=== PATIENT | female | born 1980 | race Hispanic/Latino ===

== ENCOUNTER 2017-05-30 15:40 | Emergency (ER) | payer SELFPAY ==
[2017-05-30] MEDS ORDERED: Ketorolac Tromethamine 30 MG/ML VIAL ONE (15:58)
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
[2017-05-30 16:44] LABS: Bilirubin Negative (Negative); Blood, Urine Negative (Negative); Glucose, Urine (Dipstick) Negative (Negative); Ketone, Urine Negative (Negative); Nitrite Negative (Negative); Protein, Urine (Dipstick) Negative (Neg-Trace); Urobilinogen 0.2 mg/dL (0.2-1.0)
[2017-05-30 16:50] LABS: Amphetamine Not Detected (NotDetected); Methadone Not Detected (NotDetected); Methamphetamine Not Detected (NotDetected)
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
[2017-05-30] MEDS ORDERED: Morphine 4 MG/ML VIAL ONE (17:11)
[2017-05-30 17:18] LABS: #Lymphocytes 0.9 thou/uL (1.20-3.40); #Monocytes 0.3 thou/uL (0.11-0.59); #Neutrophils 2.5 thou/uL (1.40-6.50); %Basophils 0.6 % (0.0-1.0); %Eosinophils 0.3 % (0.0-10.0); %Lymphocytes 24.5 % (21.0-51.0); %Monocytes 7.7 % (0.0-10.0); Hematocrit 38.2 % (36.0-47.0); Mean Platelet Volume 7.9 fL (7.4-10.4); Red Blood Cell (RBC) Count 4.43 mill/uL (4.20-5.40); White Blood Cell (WBC) Count 3.8 thou/uL (4.8-10.8)
[2017-05-30 17:41] LABS: ALT (SGPT) 13 U/L (8-55); AST (SGOT) 27 U/L (5-34); Alkaline Phosphatase 84 U/L (40-150); Anion Gap 18 mmol/L (10-20); BUN (Urea Nitrogen) 6 mg/dL (7.0-18.7); Bilirubin, Total 0.4 mg/dL (0.2-1.2); Calc. Creatinine Clearance 0 mL/min (70-130); Calcium 9.2 mg/dL (7.8-10.44); Carbon Dioxide 17 mmol/L (22-29); Chloride 105 mmol/L (98-107); Estimated GFR-MDRD Greater than 90; Globulin 4.1 g/dL (2.4-3.5); Protein, Total 8.5 g/dL (6.0-8.3)
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
== END 2017-05-30 18:52 | disposition home or self-care (01) ==
LOC: ERS 15:40
DX: S06.0X9A Concussion with loss of consciousness of unspecified duration, initial encounter (principal); S00.03XA Contusion of scalp, initial encounter; I10 Essential (primary) hypertension; M62.838 Other muscle spasm; V43.52XA Car driver injured in collision with other type car in traffic accident, initial encounter
CPT/HCPCS: 70450; 71010; 72050; 80053; 80306; 81003; 81025; 85025; 93005; 96374; J1885; J2270

== ENCOUNTER 2021-02-08 13:50 | Inpatient (IN) | payer SELFPAY ==
[2021-02-08 16:04] LABS: #Basophils 0.1 thou/uL (0.0-0.2); #Eosinphils 0.1 thou/uL (0.0-0.7); #Lymphocytes 2.3 thou/uL (1.20-3.40); #Monocytes 0.6 thou/uL (0.11-0.59); #Neutrophils 4.6 thou/uL (1.40-6.50); %Basophils 1.2 % (0.0-1.0); %Eosinophils 1.1 % (0.0-10.0); %Lymphocytes 29.9 % (21.0-51.0); %Monocytes 7.6 % (0.0-10.0); %Neutrophils 60.2 % (42.0-75.0); Hemoglobin 8.3 g/dL (12.0-16.0); Mean Corpuscular HGB CONC 31.7 g/dL (32.0-36.0); Mean Corpuscular Hemoglobin 24.9 pg (27.0-31.0); Mean Corpuscular Volume 78.8 fL (78.0-98.0); Mean Platelet Volume 8.7 fL (7.4-10.4); Platelet Count 250 thou/uL (130-400); RBC Distribution Width 17.4 % (11.5-14.5); Red Blood Cell (RBC) Count 3.32 mill/uL (4.20-5.40); White Blood Cell (WBC) Count 7.7 thou/uL (4.8-10.8)
[2021-02-08 16:26] LABS: ALT (SGPT) 12 U/L (8-55); AST (SGOT) 39 U/L (5-34); Albumin 3.2 g/dL (3.5-5.0); Alkaline Phosphatase 138 U/L (40-110); Anion Gap 12 mmol/L (10-20); BUN (Urea Nitrogen) 7 mg/dL (7.0-18.7); Bilirubin, Total 1.6 mg/dL (0.2-1.2); Calc. Creatinine Clearance 0 mL/min (70-130); Calcium 9.1 mg/dL (7.8-10.44); Carbon Dioxide 23 mmol/L (22-29); Chloride 105 mmol/L (98-107); Globulin 6.5 g/dL (2.4-3.5); Glucose 100 mg/dL (70-105); Iron 24 ug/dL (50-170); Iron Binding Capacity, Total 394 mcg/dL (265-497); Lipase 17 U/L (8-78); Magnesium 1.6 mg/dL (1.6-2.6); Protein, Total 9.7 g/dL (6.0-8.3); Sodium 136 mmol/L (136-145)
[2021-02-08 16:36] LABS: INR-International Normal Ratio 1.5; Prothrombin Time 18.1 sec (12.0-14.7)
[2021-02-08 16:37] LABS: PTT 54.6 sec (22.9-36.1)
[2021-02-08 17:19] LABS: Bilirubin Negative (Negative); Blood, Urine Negative (Negative); Clarity Clear (Clear); Glucose, Urine (Dipstick) Normal (Negative); Ketone, Urine Negative (Negative); Leukocyte Negative Leu/uL (Negative); Nitrite Negative (Negative); Protein, Urine (Dipstick) Negative (Neg-Trace); Specific Gravity, Urine 1.011 (1.002-1.036); Urobilinogen Normal mg/dL (Less than 2); pH, Urine 6.5 (5.0-9.0)
[2021-02-08 17:22] LABS: CEA, Serum 2.71 ng/mL (< or = 5.0)
[2021-02-08 17:36] LABS: HBCM Index 0.16 S/CO (0-0.79); HBSAg Index 0.26 S/CO (0-0.99); Hep A IgM AB Non-Reactive (NonReactive); Hep A IgM S/CO 0.16 S/CO (0-0.79); Hep B Surf Ag Non-Reactive S/CO (NonReactive); Hep C IgG Ab Non-Reactive (NonReactive); Hep C Index 0.17 S/CO (0-0.79); Hepatitis B Core IgM Abs Non-Reactive (NonReactive)
[2021-02-08] MEDS ORDERED: Ketorolac Tromethamine 30 MG/ML VIAL IVP PRN (20:08)
[2021-02-08] MEDS ORDERED: traMADol HCl 50 MG TAB PO PRN (20:09)
[2021-02-08] MEDS ORDERED: Ondansetron ODT 4 MG TAB PO PRN (20:09)
[2021-02-09 03:40] VITALS: BMI 28.8
[2021-02-09 05:40] LABS: #Eosinphils 0.2 thou/uL (0.0-0.7); #Lymphocytes 1.9 thou/uL (1.20-3.40); #Monocytes 0.5 thou/uL (0.11-0.59); %Basophils 0.5 % (0.0-1.0); %Monocytes 9.5 % (0.0-10.0); Hemoglobin 7.5 g/dL (12.0-16.0); Mean Corpuscular HGB CONC 31.7 g/dL (32.0-36.0); Mean Corpuscular Hemoglobin 25.1 pg (27.0-31.0); Mean Platelet Volume 8.8 fL (7.4-10.4); Platelet Count 219 thou/uL (130-400); RBC Distribution Width 17.2 % (11.5-14.5); Red Blood Cell (RBC) Count 2.98 mill/uL (4.20-5.40); White Blood Cell (WBC) Count 5.6 thou/uL (4.8-10.8)
[2021-02-09 05:58] LABS: Anion Gap 12 mmol/L (10-20); BUN (Urea Nitrogen) 7 mg/dL (7.0-18.7); Calc. Creatinine Clearance 114 mL/min (70-130); Calcium 8.7 mg/dL (7.8-10.44); Carbon Dioxide 21 mmol/L (22-29); Chloride 104 mmol/L (98-107); Glucose 93 mg/dL (70-105); Potassium 3.7 mmol/L (3.5-5.1); Sodium 133 mmol/L (136-145)
[2021-02-09] MEDS: Ferrous Sulfate 325 MG TAB PO SCH ×2 (08:00→18:04)
[2021-02-09 09:03] LABS: SARS-CoV-2 PCR by NAA Not Detected (NotDetected)
[2021-02-09] MEDS ORDERED: Lidocaine 1% PF 5 ML VIAL ONE (09:23)
[2021-02-09] MEDS ORDERED: Sodium Bicarbonate 2.5 MEQ/5 ML VIAL ONE (09:23)
[2021-02-09 11:46] LABS: RBC Count-Automated (BF) 470 /cu.mm; WBC/Nucleated-Auto (BF) 548 uL
[2021-02-09 11:47] LABS: BF Color Yellow; Body Fluid Source Ascites Body Fluid; Clarity Hazy (Clear); Tube # EDTA
[2021-02-09 12:18] LABS: BF Segmented Neutrophils 5 %; Cell Count Non Hematic 65 %; Lymphocytes 30 %
[2021-02-09] MEDS ORDERED: Non-Formulary Item 1 EACH (Ondansetron Hcl [Zofran] 4 MG Tab) PO PRN (12:20)
[2021-02-09] MEDS ORDERED: GoLYTELY 4,000 ml Bottle PO SCH (17:00)
[2021-02-10 05:03] LABS: #Basophils 0.1 thou/uL (0.0-0.2); #Eosinphils 0.2 thou/uL (0.0-0.7); #Lymphocytes 2.1 thou/uL (1.20-3.40); #Monocytes 0.5 thou/uL (0.11-0.59); %Basophils 1.7 % (0.0-1.0); %Eosinophils 2.9 % (0.0-10.0); %Lymphocytes 36.4 % (21.0-51.0); %Monocytes 8.3 % (0.0-10.0); %Neutrophils 50.7 % (42.0-75.0); Hemoglobin 7.8 g/dL (12.0-16.0); Mean Corpuscular HGB CONC 31.6 g/dL (32.0-36.0); Mean Platelet Volume 8.8 fL (7.4-10.4); Platelet Count 237 thou/uL (130-400); RBC Distribution Width 17.4 % (11.5-14.5); Red Blood Cell (RBC) Count 3.14 mill/uL (4.20-5.40); White Blood Cell (WBC) Count 5.9 thou/uL (4.8-10.8)
[2021-02-10 05:27] LABS: Anion Gap 12 mmol/L (10-20); BUN (Urea Nitrogen) 5 mg/dL (7.0-18.7); Calc. Creatinine Clearance 112 mL/min (70-130); Calcium 8.8 mg/dL (7.8-10.44); Carbon Dioxide 22 mmol/L (22-29); Chloride 104 mmol/L (98-107); Glucose 110 mg/dL (70-105); Potassium 3.4 mmol/L (3.5-5.1); Sodium 135 mmol/L (136-145)
[2021-02-10] MEDS ORDERED: Furosemide 20 MG TAB PO SCH (09:00)
[2021-02-10] MEDS ORDERED: Spironolactone 25 MG TAB PO SCH (09:00)
[2021-02-10] MEDS ORDERED: PROPOFOL 200 MG/20 ML VIAL ONE (09:18)
[2021-02-10] MEDS ORDERED: Ondansetron HCl/PF 4 MG/2 ML Vial IVP PRN ×2 (09:56→10:26)
[2021-02-10] MEDS ORDERED: Ketorolac Tromethamine 30 MG/ML VIAL ONE (10:17)
[2021-02-10] MEDS: Ferrous Sulfate 325 MG TAB PO SCH ×3 (11:12→17:24)
[2021-02-10] MEDS ORDERED: cefTRIAXone\\ROCEPHIN 1 GM in Sodium Chloride 0.9% 100 ML IVPB SCH (13:00)
[2021-02-10] MEDS ORDERED: Ketorolac Tromethamine 30 MG/ML VIAL IVP PRN (17:11)
[2021-02-10] MEDS ORDERED: Ondansetron ODT 4 MG TAB PO PRN (17:12)
[2021-02-10] MEDS ORDERED: traMADol HCl 50 MG TAB PO PRN (17:12)
[2021-02-11] MEDS: Ferrous Sulfate 325 MG TAB PO SCH (08:39)
[2021-02-11] MEDS ORDERED: Spironolactone 25 MG TAB PO SCH (09:00)
[2021-02-11] MEDS ORDERED: Furosemide 20 MG TAB PO SCH (09:00)
[2021-02-11 12:22] VITALS: BP 120/73; TEMP 98.2
[2021-02-11] MEDS ORDERED: cefTRIAXone\\ROCEPHIN 1 GM in Sodium Chloride 0.9% 100 ML IVPB SCH (13:00)
[2021-02-11 16:09] LABS: ANA Symphony (Qualitative) Negative (Negative); ANA Symphony (Quantitative) 0.3 Ratio (< 0.7 Negative); dsDNA IgG Antibody 1.9 IU/mL (<10 Negative)
== END 2021-02-11 13:20 | disposition home or self-care (01) | DRG 442 ==
LOC: ERS 13:50 → SURG B 18:20 → CCU 21:41 → SURG B 21:45 → UNDODISIN 02-10 14:30
PROVIDERS: ADMIT Internal Medicine; ATTEND Internal Medicine
PROC: 0W9G3ZZ Drainage of Peritoneal Cavity, Percutaneous Approach (ICD-10-PCS; principal; 2021-02-09)
PROC: 0DB78ZX Excision of Stomach, Pylorus, Via Natural or Artificial Opening Endoscopic, Diagnostic (ICD-10-PCS; 2021-02-10)
PROC: 0DBK8ZZ Excision of Ascending Colon, Via Natural or Artificial Opening Endoscopic (ICD-10-PCS; 2021-02-10)
DX: K76.6 Portal hypertension (principal); R18.8 Other ascites; K31.89 Other diseases of stomach and duodenum; Z20.822 Contact with and (suspected) exposure to COVID-19; D50.9 Iron deficiency anemia, unspecified; F10.10 Alcohol abuse, uncomplicated; K29.70 Gastritis, unspecified, without bleeding; K63.5 Polyp of colon; K64.8 Other hemorrhoids; Z79.899 Other long term (current) drug therapy
CPT/HCPCS: 36415; 49083; 71045; 76856; 80048; 80053; 80074; 81003; 82042; 82105; 82378; 82390; 82607; 82728; 82746; 82945; 83516; 83540; 83550; 83690; 83735; 84157; 85025; 85060; 85610; 85730; 86038; 86225; 86301; 86304; 87070; 87205; 88112; 88305; 88342; 89051; 93005; 93976; 94760; J0696; J1885; J2704; J3490; Q0162; U0003; U0005

== ENCOUNTER 2021-12-06 03:03 | Inpatient (IN) | payer SELFPAY ==
[2021-12-06] MEDS ORDERED: Lorazepam 2 MG/ML VIAL ONE (04:04)
[2021-12-06 04:17] LABS: #Basophils 0.1 thou/uL (0.0-0.2); #Lymphocytes 1.5 thou/uL (1.20-3.40); #Monocytes 0.7 thou/uL (0.11-0.59); #Neutrophils 3.6 thou/uL (1.40-6.50); %Basophils 2.5 % (0.0-1.0); %Eosinophils 0.2 % (0.0-10.0); %Monocytes 11.5 % (0.0-10.0); %Neutrophils 60.7 % (42.0-75.0); Hemoglobin 10.7 g/dL (12.0-16.0); Mean Corpuscular HGB CONC 30.8 g/dL (32.0-36.0); Mean Corpuscular Hemoglobin 24.2 pg (27.0-31.0); Mean Corpuscular Volume 78.5 fL (78.0-98.0); Mean Platelet Volume 7.2 fL (7.4-10.4); Platelet Count 74 thou/uL (130-400); Red Blood Cell (RBC) Count 4.42 mill/uL (4.20-5.40); White Blood Cell (WBC) Count 5.9 thou/uL (4.8-10.8)
[2021-12-06 04:30] LABS: ALT (SGPT) 34 U/L (8-55); AST (SGOT) 90 U/L (5-34); Albumin 4.1 g/dL (3.5-5.0); Alcohol Less than 10 mg/dL (Less than 10); Alkaline Phosphatase 186 U/L (40-110); Anion Gap 14 mmol/L (10-20); BUN (Urea Nitrogen) 24 mg/dL (7.0-18.7); Bilirubin, Total 2.7 mg/dL (0.2-1.2); Calc. Creatinine Clearance 0 mL/min (70-130); Calcium 9.2 mg/dL (7.8-10.44); Carbon Dioxide 22 mmol/L (22-29); Chloride 101 mmol/L (98-107); Globulin 5.4 g/dL (2.4-3.5); Glucose 114 mg/dL (70-105); Protein, Total 9.5 g/dL (6.0-8.3); Sodium 134 mmol/L (136-145)
[2021-12-06] MEDS ORDERED: Multivitamins, Adult 10 ML, Thiamine HCl 100 MG, Folic Acid 1 MG in Dextrose 5 %-0.45 %... IV SCH (04:30)
[2021-12-06 04:31] LABS: Acetaminophen Less than 10.0 mcg/mL (10.0-30.0); Alcohol Less than 10 mg/dL (Less than 10); Lipase 31 U/L (8-78); Salicylate Less than 8.0 mg/dL (15.0-30.0)
[2021-12-06 04:36] LABS: Bilirubin 1+ (Negative); Blood, Urine 1+ (Negative); Clarity Turbid (Clear); Glucose, Urine (Dipstick) 30 mg/dL (Negative); Ketone, Urine Trace mg/dL (Negative); Leukocyte 500 Leu/uL (Negative); Mucous/LPF Rare LPF (<2+); Nitrite Negative (Negative); Protein, Urine (Dipstick) 100 mg/dL (Neg-Trace); Specific Gravity, Urine 1.031 (1.002-1.036)
[2021-12-06 04:40] LABS: Pregnancy Test - Urine (BHCG) Negative (Negative)
[2021-12-06 04:40] LABS: Potassium 2.9 mmol/L (3.5-5.1)
[2021-12-06 04:41] LABS: Pregu Control Background? CLEAR/WHITE (CLR/WHITE); Pregu Control Bar Appear? YES (CONTROL BAR); Specific Gravity 1.031 (1.002-1.036)
[2021-12-06 04:42] LABS: Amphetamine Not Detected (NotDetected); Barbiturates Screen Not Detected (NotDetected); Benzodiazepine Screen Not Detected (NotDetected); Cocaine Metabolite Screen Not Detected (NotDetected); Methadone Not Detected (NotDetected); Methamphetamine Not Detected (NotDetected); Opiate Screen Not Detected (NotDetected); Oxycodone Screen Not Detected (NotDetected); Phencyclidine (PCP) Not Detected (NotDetected); THC/Cannabinoid Screen Not Detected (NotDetected); Tricyclic Screen Not Detected (NotDetected)
[2021-12-06] MEDS ORDERED: Potassium Chloride 20 MEQ TAB ONE (04:48)
[2021-12-06 04:56] LABS: Bacteria/HPF Rare-Few HPF (None Seen)
[2021-12-06 04:57] LABS: RBC/HPF 0-3 HPF (0-3); Squamous Epithelial 0-3 HPF (0-3); WBC/HPF 0-3 HPF (0-3)
[2021-12-06] MEDS ORDERED: Potassium Chloride 40 MEQ in Sodium Chloride 0.9% 250 ML 250 ML IVPB SCH (05:00)
[2021-12-06] MEDS ORDERED: Ondansetron ODT 4 MG TAB PO PRN ×2 (05:21)
[2021-12-06] MEDS ORDERED: Lorazepam 1 MG TAB PO PRN (05:21)
[2021-12-06] MEDS ORDERED: Sodium Chloride 0.9% 1,000 ML IV SCH (05:21)
[2021-12-06] MEDS ORDERED: Acetaminophen 500 MG TAB PO PRN (05:21)
[2021-12-06] MEDS ORDERED: Lorazepam 2 MG/ML VIAL IM PRN (05:21)
[2021-12-06] MEDS ORDERED: Labetalol HCl 100 MG/20 ML VIAL SLOW IVP PRN (05:21)
[2021-12-06] MEDS ORDERED: Ondansetron PF 4 MG/2 ML Vial IVP PRN (05:21)
[2021-12-06] MEDS ORDERED: Electrolyte Replacement Protocol 1 EACH FS SCH (05:21)
[2021-12-06] MEDS ORDERED: hydrALAZINE 20 MG/ML VIAL SLOW IVP PRN (05:21)
[2021-12-06] MEDS ORDERED: Electrolyte Replacement Protocol 1 EACH FS ONE (05:22)
[2021-12-06 06:41] LABS: Phosphorus 3.3 mg/dL (2.3-4.7)
[2021-12-06 07:42] VITALS: BMI 30.2
[2021-12-06] MEDS ORDERED: Magnesium 2 GM/50 ML(in water) 2 GM in Premix Bag 1 BAG IVPB SCH (09:00)
[2021-12-06 11:05] LABS: Syphilis Antibody Nonreactive (Nonreactive); Syphilis Antibody Index 0.16 S/CO (<1.00 Non-Reactive)
[2021-12-06] MEDS: Thiamine HCl 200 MG/2 ML VIAL SLOW IVP SCH (11:13)
[2021-12-06] MEDS: Pantoprazole 40 MG VIAL IVP SCH ×2 (11:14→21:23)
[2021-12-06] MEDS: cefTRIAXone\\ROCEPHIN 1 GM in Sodium Chloride 0.9% 100 ML IVPB SCH (11:15)
[2021-12-06] MEDS: Lorazepam 1 MG TAB PO SCH ×4 (13:46→23:23)
[2021-12-06] MEDS: Potassium Chloride 20 MEQ TAB PO SCH ×2 (13:47→16:42)
[2021-12-06] MEDS: Multivit, Therapeutic 1 TAB PO SCH ×2 (13:47→16:42)
[2021-12-06] MEDS: NS 0.9% w/ 20 MEQ KCL 1,000 ML/1,000 ML BAG IV SCH (16:36)
[2021-12-06] MEDS ORDERED: cloNIDine 0.1 MG TAB PO PRN (21:09)
[2021-12-07] MEDS: NS 0.9% w/ 20 MEQ KCL 1,000 ML/1,000 ML BAG IV SCH ×2 (03:02→20:00)
[2021-12-07 04:55] LABS: INR-International Normal Ratio 1.4; Prothrombin Time 17.4 sec (12.0-14.7)
[2021-12-07 04:56] LABS: PTT 41.3 sec (22.9-36.1)
[2021-12-07 05:09] LABS: ALT (SGPT) 29 U/L (8-55); AST (SGOT) 64 U/L (5-34); Albumin 3.4 g/dL (3.5-5.0); Alkaline Phosphatase 160 U/L (40-110); Anion Gap 9 mmol/L (10-20); BUN (Urea Nitrogen) 10 mg/dL (7.0-18.7); Bilirubin, Total 1.9 mg/dL (0.2-1.2); Calc. Creatinine Clearance 133 mL/min (70-130); Calcium 8.3 mg/dL (7.8-10.44); Carbon Dioxide 22 mmol/L (22-29); Chloride 111 mmol/L (98-107); Globulin 4.6 g/dL (2.4-3.5); Glucose 120 mg/dL (70-105); Potassium 3.7 mmol/L (3.5-5.1); Sodium 138 mmol/L (136-145)
[2021-12-07] MEDS ORDERED: Lorazepam 1 MG TAB PO PRN (05:13)
[2021-12-07 05:17] LABS: Phosphorus 2.4 mg/dL (2.3-4.7)
[2021-12-07 05:32] LABS: #Basophils 0.1 thou/uL (0.0-0.2); #Eosinphils 0.1 thou/uL (0.0-0.7); #Lymphocytes 1.7 thou/uL (1.20-3.40); #Monocytes 0.5 thou/uL (0.11-0.59); #Neutrophils 1.4 thou/uL (1.40-6.50); %Basophils 2.7 % (0.0-1.0); %Eosinophils 2.2 % (0.0-10.0); %Lymphocytes 44.6 % (21.0-51.0); %Monocytes 13.7 % (0.0-10.0); %Neutrophils 36.9 % (42.0-75.0); Anisocytosis SLIGHT = 6-15 cells (100X) (0-5/hpf); Hemoglobin 9.9 g/dL (12.0-16.0); Hypochromia SLIGHT = 6-15 cells (100X) (0-5/hpf); MDiff Complete? YES; Mean Corpuscular Hemoglobin 24.4 pg (27.0-31.0); Mean Corpuscular Volume 81.4 fL (78.0-98.0); Mean Platelet Volume 7.2 fL (7.4-10.4); Microcytosis SLIGHT = 6-15 cells (100X) (0-5/hpf); Platelet Count 67 thou/uL (130-400); Platelet Morphology Comment Appears Decreased; RBC Distribution Width 17.9 % (11.5-14.5); Red Blood Cell (RBC) Count 4.04 mill/uL (4.20-5.40); White Blood Cell (WBC) Count 3.9 thou/uL (4.8-10.8)
[2021-12-07] MEDS: cefTRIAXone\\ROCEPHIN 1 GM in Sodium Chloride 0.9% 100 ML IVPB SCH (06:02)
[2021-12-07] MEDS: Thiamine HCl 200 MG/2 ML VIAL SLOW IVP SCH (06:02)
[2021-12-07] MEDS: Lorazepam 1 MG TAB PO SCH ×4 (06:16→23:49)
[2021-12-07] MEDS ORDERED: Magnesium 2 GM/50 ML(in water) 2 GM in Premix Bag 1 BAG IVPB SCH (08:00)
[2021-12-07] MEDS: Folic Acid 1 MG TAB PO SCH (09:02)
[2021-12-07] MEDS: pyridOXINE 50 MG (B6) TAB PO SCH (09:02)
[2021-12-07] MEDS: Multivit, Therapeutic 1 TAB PO SCH (09:02)
[2021-12-07] MEDS: Pantoprazole 40 MG VIAL IVP SCH (09:03)
[2021-12-07] MEDS ORDERED: NS 0.9% w/ 20 MEQ KCL 1,000 ML/1,000 ML BAG IV SCH (09:41)
[2021-12-08] MEDS ORDERED: Lorazepam 1 MG TAB PO PRN (05:13)
[2021-12-08 05:17] LABS: ALT (SGPT) 27 U/L (8-55); AST (SGOT) 62 U/L (5-34); Albumin 3.6 g/dL (3.5-5.0); Alkaline Phosphatase 171 U/L (40-110); Anion Gap 11 mmol/L (10-20); BUN (Urea Nitrogen) 6 mg/dL (7.0-18.7); Bilirubin, Total 1.8 mg/dL (0.2-1.2); Calc. Creatinine Clearance 137 mL/min (70-130); Calcium 8.8 mg/dL (7.8-10.44); Carbon Dioxide 22 mmol/L (22-29); Chloride 105 mmol/L (98-107); Globulin 4.7 g/dL (2.4-3.5); Glucose 98 mg/dL (70-105); Magnesium 1.8 mg/dL (1.6-2.6); Phosphorus 3.2 mg/dL (2.3-4.7); Potassium 4.2 mmol/L (3.5-5.1); Protein, Total 8.3 g/dL (6.0-8.3); Sodium 134 mmol/L (136-145)
[2021-12-08] MEDS: Lorazepam 0.5 MG TAB PO SCH ×3 (05:19→18:32)
[2021-12-08] MEDS: Thiamine HCl 200 MG/2 ML VIAL SLOW IVP SCH (05:19)
[2021-12-08] MEDS: NS 0.9% w/ 20 MEQ KCL 1,000 ML/1,000 ML BAG IV SCH (05:20)
[2021-12-08 05:57] LABS: #Basophils 0.1 thou/uL (0.0-0.2); #Eosinphils 0.1 thou/uL (0.0-0.7); #Lymphocytes 2.3 thou/uL (1.20-3.40); #Monocytes 0.6 thou/uL (0.11-0.59); #Neutrophils 1.8 thou/uL (1.40-6.50); %Basophils 1.5 % (0.0-1.0); %Eosinophils 2.4 % (0.0-10.0); %Lymphocytes 47.2 % (21.0-51.0); %Monocytes 11.5 % (0.0-10.0); %Neutrophils 37.4 % (42.0-75.0); Anisocytosis SLIGHT = 6-15 cells (100X) (0-5/hpf); Hemoglobin 10.4 g/dL (12.0-16.0); MDiff Complete? YES; Mean Corpuscular HGB CONC 30.1 g/dL (32.0-36.0); Mean Corpuscular Hemoglobin 24.3 pg (27.0-31.0); Mean Corpuscular Volume 80.6 fL (78.0-98.0); Mean Platelet Volume 6.9 fL (7.4-10.4); Platelet Count 78 thou/uL (130-400); Platelet Morphology Comment Appears Decreased; RBC Distribution Width 18.4 % (11.5-14.5); Red Blood Cell (RBC) Count 4.27 mill/uL (4.20-5.40); White Blood Cell (WBC) Count 4.8 thou/uL (4.8-10.8)
[2021-12-08] MEDS ORDERED: Magnesium 2 GM/50 ML(in water) 2 GM in Premix Bag 1 BAG IVPB SCH (08:00)
[2021-12-08] MEDS: Multivit, Therapeutic 1 TAB PO SCH (08:48)
[2021-12-08] MEDS: Folic Acid 1 MG TAB PO SCH (08:48)
[2021-12-08] MEDS: pyridOXINE 50 MG (B6) TAB PO SCH (08:48)
[2021-12-08 16:41] VITALS: BP 113/68; TEMP 98.5
[2021-12-09] MEDS ORDERED: Lorazepam 0.5 MG TAB PO PRN (05:13)
[2021-12-09] MEDS ORDERED: Thiamine 100 MG TAB PO SCH (06:00)
== END 2021-12-08 19:15 | disposition home or self-care (01) | DRG 896 ==
LOC: ERS 03:03 → 2NO 06:18
PROVIDERS: ADMIT Family Medicine; ATTEND Internal Medicine
DX: F10.231 Alcohol dependence with withdrawal delirium (principal); G92.8 Other toxic encephalopathy; R44.0 Auditory hallucinations; E87.1 Hypo-osmolality and hyponatremia; D61.818 Other pancytopenia; D68.9 Coagulation defect, unspecified; E44.0 Moderate protein-calorie malnutrition; E87.6 Hypokalemia; R44.1 Visual hallucinations; E88.09 Other disorders of plasma-protein metabolism, not elsewhere classified; Z20.822 Contact with and (suspected) exposure to COVID-19
CPT/HCPCS: 36415; 76700; 80053; 80306; 80307; 81003; 81015; 81025; 82140; 82607; 82746; 83690; 83735; 84100; 84443; 85025; 85610; 85730; 86780; 93005; 96365; 96375; C9113; J0696; J2060; J3411; J3475; J3480; J3490; J7042; J7050; Q0162; U0003; U0005

== ENCOUNTER 2023-12-13 03:46 | Inpatient (IN) | payer SELFPAY ==
[2023-12-13 04:39] LABS: Pregnancy Test - Urine (BHCG) Negative (Negative); Pregu Control Background? CLEAR/WHITE (CLR/WHITE); Pregu Control Bar Appear? YES (CONTROL BAR); Specific Gravity 1.015 (1.002-1.036)
[2023-12-13 04:49] LABS: ALT (SGPT) 27 U/L (8-55); AST (SGOT) 154 U/L (5-34); Albumin 2.8 g/dL (3.5-5.0); Alkaline Phosphatase 341 U/L (40-110); Anion Gap 19 mmol/L (10-20); BUN (Urea Nitrogen) Less than 4 mg/dL (7.0-18.7); Calc. Creatinine Clearance 0 mL/min (70-130); Calcium 8.1 mg/dL (7.8-10.44); Carbon Dioxide 15 mmol/L (22-29); Chloride 97 mmol/L (98-107); Estimated GFR 108; Globulin 6.7 g/dL (2.4-3.5); Glucose 146 mg/dL (70-105); Potassium 3.1 mmol/L (3.5-5.1); Protein, Total 9.5 g/dL (6.0-8.3); Sodium 128 mmol/L (136-145)
[2023-12-13 04:54] LABS: Bacteria/HPF 4+ HPF (None Seen); Bilirubin 1+ (Negative); Blood, Urine 3+ (Negative); CAUTI Indications for Culture Fever or rigors; Clarity Extra Turbid (Clear); Glucose, Urine (Dipstick) Normal (Negative); Ketone, Urine 10 mg/dL (Negative); Leukocyte 500 Leu/uL (Negative); Nitrite Negative (Negative); Protein, Urine (Dipstick) 200 mg/dL (Neg-Trace); RBC/HPF Greater than 50 HPF (0-3); Specific Gravity, Urine 1.015 (1.002-1.036); Squamous Epithelial 21-50 HPF (0-3); WBC/HPF Greater than 50 HPF (0-3); pH, Urine 6.5 (5.0-9.0)
[2023-12-13 04:56] LABS: Urine Culture Reflex Yes Yes
[2023-12-13 05:07] LABS: SARS-CoV-2 E Target Negative; SARS-CoV-2 N2 Target Negative; SARS-CoV-2 NAA Rapid Test Not Detected (NotDetected); SARS-CoV-2 RdRP gene Negative
[2023-12-13 05:09] LABS: #Basophils 0.05 10x3/uL (0.0-0.2); #Eosinphils Less than 0.03 10x3/uL (0.0-0.7); %Basophils 0.8 % (0.0-1.0); %Lymphocytes 2.7 % (21.0-51.0); %Monocytes 4.1 % (0.0-10.0); %Neutrophils 91.9 % (42.0-75.0); Hematocrit 28.5 % (36.0-47.0); Hemoglobin 9.5 g/dL (12.0-16.0); Hypochromia SLIGHT = 6-15 cells HPF (0-5); Mean Corpuscular HGB CONC 33.3 g/dL (32.0-36.0); Mean Corpuscular Hemoglobin 29.9 pg (27.0-31.0); Mean Corpuscular Volume 89.6 fL (78.0-98.0); Platelet Adequacy Comment Significant Decrease; Platelet Count 18 10x3/uL (130-400); Poikilocytosis SLIGHT = 6-15 cells HPF (0-5); Polychromasia SLIGHT = 2-3 cells HPF (0-2); RBC Distribution Width 19.9 % (11.5-14.5); Red Blood Cell (RBC) Count 3.18 mill/uL (4.20-5.40); Target Cells SLIGHT = 2-5 cells HPF (0-1)
[2023-12-13] MEDS ORDERED: Potassium Chloride 20 MEQ TAB ONE (05:17)
[2023-12-13] MEDS ORDERED: Sodium Chloride 0.9% 100 ML ONE (05:18)
[2023-12-13] MEDS ORDERED: cefTRIAXone (ROCEPHIN) 2 GM VIAL ONE (05:18)
[2023-12-13] MEDS ORDERED: Magnesium 2 GM/50 ML BAG (IN WATER) ONE (05:18)
[2023-12-13 05:51] LABS: Bacteria/HPF 4+ HPF (None Seen); Bilirubin Negative (Negative); Blood, Urine 2+ (Negative); CAUTI Indications for Culture Fever or rigors; Clarity Turbid (Clear); Glucose, Urine (Dipstick) Normal (Negative); Ketone, Urine Negative (Negative); Leukocyte 500 Leu/uL (Negative); Nitrite Negative (Negative); Protein, Urine (Dipstick) 10 mg/dL (Neg-Trace); RBC/HPF 0-3 HPF (0-3); Specific Gravity, Urine 1.005 (1.002-1.036); Squamous Epithelial 0-3 HPF (0-3); Urobilinogen Normal mg/dL (Less than 2); WBC/HPF 21-50 HPF (0-3); pH, Urine 6.5 (5.0-9.0)
[2023-12-13 07:12] VITALS: BMI 23.8
[2023-12-13] MEDS ORDERED: Ondansetron PF 4 MG/2 ML Vial IVP PRN (07:27)
[2023-12-13] MEDS ORDERED: Senokot S 8.6-50 MG TAB PO PRN (07:27)
[2023-12-13] MEDS ORDERED: Calcium Carbonate 500 MG ChewTAB PO PRN (07:27)
[2023-12-13] MEDS ORDERED: Morphine 2 MG/ML VIAL SLOW IVP PRN (07:59)
[2023-12-13] MEDS: Sodium Chloride 0.9% 1,000 ML IV SCH (08:19)
[2023-12-13] MEDS: Enoxaparin 40 MG (0.4 mL) SYRINGE SC SCH (08:20)
[2023-12-13] MEDS: Pantoprazole DR 40 MG TAB PO SCH (12:04)
[2023-12-13] MEDS ORDERED: Iopamidol-370 76% 500 ML MDV (1 ML CHARGE) ONE (12:32)
[2023-12-13 15:26] LABS: ALT (SGPT) 25 U/L (8-55); AST (SGOT) 142 U/L (5-34); Albumin 2.4 g/dL (3.5-5.0); Alkaline Phosphatase 275 U/L (40-110); Anion Gap 14 mmol/L (10-20); BUN (Urea Nitrogen) 4 mg/dL (7.0-18.7); Bilirubin, Total 2.5 mg/dL (0.2-1.2); Calc. Creatinine Clearance 114 mL/min (70-130); Calcium 7.6 mg/dL (7.8-10.44); Carbon Dioxide 20 mmol/L (22-29); Chloride 106 mmol/L (98-107); Estimated GFR 117; Globulin 5.8 g/dL (2.4-3.5); Glucose 97 mg/dL (70-105); Lipase 29 U/L (8-78); Magnesium 2.2 mg/dL (1.6-2.6); Potassium 3.3 mmol/L (3.5-5.1); Protein, Total 8.2 g/dL (6.0-8.3); Sodium 137 mmol/L (136-145)
[2023-12-13 15:46] LABS: Phosphorus 2.4 mg/dL (2.3-4.7)
[2023-12-13] MEDS: Potassium Chloride 20 MEQ in Premix 1 BAG IVPB SCH (16:38)
[2023-12-13] MEDS: Acetaminophen 325 MG TAB PO PRN (19:51)
[2023-12-14] MEDS: cefTRIAXone\\ROCEPHIN 1 GM in Sodium Chloride 0.9% 100 ML IVPB SCH (06:09)
[2023-12-14] MEDS: Folic Acid 1 MG TAB PO SCH (08:11)
[2023-12-14] MEDS: Multivit, Therapeutic 1 TAB PO SCH (08:11)
[2023-12-14] MEDS: Pantoprazole DR 40 MG TAB PO SCH (08:11)
[2023-12-14 11:33] LABS: INR-International Normal Ratio 1.4; Prothrombin Time 17.4 sec (12.0-14.7)
[2023-12-14 11:43] LABS: Iron 18 ug/dL (50-170); Iron Binding Capacity, Total 231 mcg/dL (265-497); Phosphorus 1.5 mg/dL (2.3-4.7)
[2023-12-14 11:44] LABS: ALT (SGPT) 26 U/L (8-55); AST (SGOT) 119 U/L (5-34); Albumin 2.5 g/dL (3.5-5.0); Alkaline Phosphatase 287 U/L (40-110); Anion Gap 13 mmol/L (10-20); BUN (Urea Nitrogen) 5 mg/dL (7.0-18.7); Bilirubin, Total 2.3 mg/dL (0.2-1.2); Calc. Creatinine Clearance 104 mL/min (70-130); Carbon Dioxide 17 mmol/L (22-29); Chloride 107 mmol/L (98-107); Estimated GFR 115; Globulin 6.2 g/dL (2.4-3.5); Glucose 99 mg/dL (70-105); Iron 15 ug/dL (50-170); Iron Binding Capacity, Total 224 mcg/dL (265-497); Magnesium 1.7 mg/dL (1.6-2.6); Protein, Total 8.7 g/dL (6.0-8.3); Sodium 133 mmol/L (136-145)
[2023-12-14 11:53] LABS: #Basophils 0.09 10x3/uL (0.0-0.2); #Eosinphils Less than 0.03 10x3/uL (0.0-0.7); %Basophils 1.4 % (0.0-1.0); %Eosinophils 0.3 % (0.0-10.0); %Monocytes 9.3 % (0.0-10.0); %Neutrophils 78.5 % (42.0-75.0); Hematocrit 31.7 % (36.0-47.0); Mean Corpuscular HGB CONC 31.5 g/dL (32.0-36.0); Mean Corpuscular Hemoglobin 29.1 pg (27.0-31.0); Mean Corpuscular Volume 92.2 fL (78.0-98.0); Platelet Count 23 10x3/uL (130-400); Red Blood Cell (RBC) Count 3.44 mill/uL (4.20-5.40)
[2023-12-14] MEDS: Sodium Chloride 0.9% 1,000 ML IV SCH (14:51)
[2023-12-14] MEDS: Potassium Phosphate 9 MMOL in Sodium Chloride 0.9% 100 ML IVPB SCH (14:52)
[2023-12-14] MEDS: Magnesium 2 GM/50 ML(in water) 2 GM in Premix 1 BAG IVPB SCH (14:52)
[2023-12-14] MEDS: hydrOXYzine 25 MG TAB PO SCH (21:39)
[2023-12-14] MEDS ORDERED: Electrolyte Replacement Protocol 1 EACH FS SCH (23:15)
[2023-12-14] MEDS: Thiamine HCl 200 MG/2 ML VIAL SLOW IVP SCH (23:18)
[2023-12-14] MEDS: Lorazepam 1 MG TAB PO SCH (23:18)
[2023-12-15] MEDS: Lorazepam 1 MG TAB PO PRN (05:40)
[2023-12-15] MEDS: Lorazepam 2 MG/ML VIAL IM PRN (06:09)
[2023-12-15 06:28] LABS: #Basophils 0.16 10x3/uL (0.0-0.2); %Basophils 1.5 % (0.0-1.0); %Eosinophils 0.7 % (0.0-10.0); %Lymphocytes 26.3 % (21.0-51.0); %Monocytes 10.8 % (0.0-10.0); %Neutrophils 60.3 % (42.0-75.0); Hematocrit 31.9 % (36.0-47.0); Hemoglobin 10.2 g/dL (12.0-16.0); Mean Corpuscular Hemoglobin 29.1 pg (27.0-31.0); Mean Corpuscular Volume 90.9 fL (78.0-98.0); Platelet Count 39 10x3/uL (130-400); RBC Distribution Width 21.2 % (11.5-14.5); Red Blood Cell (RBC) Count 3.51 mill/uL (4.20-5.40)
[2023-12-15 06:40] LABS: ALT (SGPT) 25 U/L (8-55); AST (SGOT) 96 U/L (5-34); Albumin 2.7 g/dL (3.5-5.0); Alkaline Phosphatase 310 U/L (40-110); Anion Gap 18 mmol/L (10-20); BUN (Urea Nitrogen) 4 mg/dL (7.0-18.7); Bilirubin, Total 2.5 mg/dL (0.2-1.2); Calc. Creatinine Clearance 96 mL/min (70-130); Calcium 8.5 mg/dL (7.8-10.44); Carbon Dioxide 15 mmol/L (22-29); Chloride 107 mmol/L (98-107); Estimated GFR 112; Globulin 6.4 g/dL (2.4-3.5); Glucose 135 mg/dL (70-105); Protein, Total 9.1 g/dL (6.0-8.3); Sodium 136 mmol/L (136-145)
[2023-12-15 06:49] LABS: Magnesium 1.6 mg/dL (1.6-2.6); Phosphorus 2.5 mg/dL (2.3-4.7)
[2023-12-15] MEDS: Dexmedetomidine 400 MCG, Admixture Fee 1 EACH in Sodium Chloride 0.9% 96 ML IVPB SCH (07:06)
[2023-12-15] MEDS: Folic Acid 1 MG TAB PO SCH (07:45)
[2023-12-15] MEDS: Magnesium 2 GM/50 ML(in water) 2 GM in Premix 1 BAG IVPB SCH (08:01)
[2023-12-15] MEDS: Lactated Ringer's 500 ML IV SCH (10:39)
[2023-12-15] MEDS: Lorazepam 2 MG/ML VIAL SLOW IVP PRN (14:43)
[2023-12-15] MEDS ORDERED: Lorazepam 1 MG TAB PO PRN (23:05)
[2023-12-16 04:34] LABS: #Basophils 0.08 10x3/uL (0.0-0.2); #Eosinphils Less than 0.03 10x3/uL (0.0-0.7); %Basophils 1.7 % (0.0-1.0); %Eosinophils 0.4 % (0.0-10.0); %Lymphocytes 24.3 % (21.0-51.0); %Neutrophils 62.4 % (42.0-75.0); Hematocrit 28.3 % (36.0-47.0); Hemoglobin 9.1 g/dL (12.0-16.0); Mean Corpuscular HGB CONC 32.2 g/dL (32.0-36.0); Mean Corpuscular Hemoglobin 29.7 pg (27.0-31.0); Mean Corpuscular Volume 92.5 fL (78.0-98.0); Mean Platelet Volume 11.1 fL (7.4-10.4); Platelet Count 30 10x3/uL (130-400); Red Blood Cell (RBC) Count 3.06 mill/uL (4.20-5.40)
[2023-12-16 04:51] LABS: ALT (SGPT) 22 U/L (8-55); AST (SGOT) 86 U/L (5-34); Albumin 2.3 g/dL (3.5-5.0); Alkaline Phosphatase 286 U/L (40-110); Anion Gap 14 mmol/L (10-20); BUN (Urea Nitrogen) 5 mg/dL (7.0-18.7); Bilirubin, Total 2.2 mg/dL (0.2-1.2); Calc. Creatinine Clearance 118 mL/min (70-130); Calcium 7.8 mg/dL (7.8-10.44); Carbon Dioxide 18 mmol/L (22-29); Chloride 108 mmol/L (98-107); Estimated GFR 118; Globulin 5.2 g/dL (2.4-3.5); Glucose 98 mg/dL (70-105); Potassium 2.9 mmol/L (3.5-5.1); Protein, Total 7.5 g/dL (6.0-8.3); Sodium 137 mmol/L (136-145)
[2023-12-16] MEDS: Potassium Chloride 20 MEQ TAB PO SCH (08:27)
[2023-12-16] MEDS: Magnesium 2 GM/50 ML(in water) 2 GM in Premix 1 BAG IVPB SCH (13:45)
[2023-12-16] MEDS: Potassium Chloride 20 MEQ in Premix 1 BAG IVPB SCH (13:45)
[2023-12-16] MEDS ORDERED: Lorazepam 1 MG TAB PO PRN (23:05)
[2023-12-17] MEDS: Lorazepam 0.5 MG TAB PO SCH (00:29)
[2023-12-17 04:23] LABS: %Basophils 1.6 % (0.0-1.0); %Eosinophils 1.1 % (0.0-10.0); %Lymphocytes 25.2 % (21.0-51.0); %Monocytes 12.1 % (0.0-10.0); %Neutrophils 59.5 % (42.0-75.0); Hematocrit 30.1 % (36.0-47.0); Hemoglobin 9.6 g/dL (12.0-16.0); Mean Corpuscular HGB CONC 31.9 g/dL (32.0-36.0); Mean Corpuscular Hemoglobin 29.6 pg (27.0-31.0); Mean Corpuscular Volume 92.9 fL (78.0-98.0); Mean Platelet Volume 11.6 fL (7.4-10.4); Platelet Count 40 10x3/uL (130-400); RBC Distribution Width 21.2 % (11.5-14.5); Red Blood Cell (RBC) Count 3.24 mill/uL (4.20-5.40)
[2023-12-17 04:39] LABS: ALT (SGPT) 23 U/L (8-55); AST (SGOT) 79 U/L (5-34); Albumin 2.2 g/dL (3.5-5.0); Alkaline Phosphatase 303 U/L (40-110); Anion Gap 13 mmol/L (10-20); BUN (Urea Nitrogen) 6 mg/dL (7.0-18.7); Bilirubin, Total 2.2 mg/dL (0.2-1.2); Calc. Creatinine Clearance 108 mL/min (70-130); Calcium 8.1 mg/dL (7.8-10.44); Carbon Dioxide 16 mmol/L (22-29); Chloride 107 mmol/L (98-107); Estimated GFR 117; Globulin 5.6 g/dL (2.4-3.5); Glucose 132 mg/dL (70-105); Magnesium 1.4 mg/dL (1.6-2.6); Potassium 3.9 mmol/L (3.5-5.1); Protein, Total 7.8 g/dL (6.0-8.3); Sodium 132 mmol/L (136-145)
[2023-12-17] MEDS: Magnesium Sulfate In Water 4 GM in Premix 1 BAG IVPB SCH (11:52)
[2023-12-17] MEDS: Thiamine 100 MG TAB PO SCH (21:02)
[2023-12-17] MEDS ORDERED: Lorazepam 0.5 MG TAB PO PRN (23:05)
[2023-12-18 09:22] LABS: ALT (SGPT) 29 U/L (8-55); AST (SGOT) 86 U/L (5-34); Albumin 2.8 g/dL (3.5-5.0); Alkaline Phosphatase 351 U/L (40-110); Anion Gap 15 mmol/L (10-20); BUN (Urea Nitrogen) 7 mg/dL (7.0-18.7); Bilirubin, Total 3.3 mg/dL (0.2-1.2); Calc. Creatinine Clearance 92 mL/min (70-130); Calcium 8.8 mg/dL (7.8-10.44); Carbon Dioxide 18 mmol/L (22-29); Chloride 105 mmol/L (98-107); Estimated GFR 113; Globulin 6.5 g/dL (2.4-3.5); Glucose 155 mg/dL (70-105); Magnesium 1.6 mg/dL (1.6-2.6); Potassium 3.5 mmol/L (3.5-5.1); Protein, Total 9.3 g/dL (6.0-8.3); Sodium 134 mmol/L (136-145)
[2023-12-18 09:34] LABS: #Basophils 0.14 10x3/uL (0.0-0.2); #Eosinphils Less than 0.03 10x3/uL (0.0-0.7); %Basophils 2.1 % (0.0-1.0); %Eosinophils 0.3 % (0.0-10.0); %Monocytes 8.5 % (0.0-10.0); %Neutrophils 74.5 % (42.0-75.0); Hematocrit 32.3 % (36.0-47.0); Hemoglobin 10.5 g/dL (12.0-16.0); Mean Corpuscular HGB CONC 32.5 g/dL (32.0-36.0); Mean Corpuscular Hemoglobin 29.3 pg (27.0-31.0); Mean Corpuscular Volume 90.2 fL (78.0-98.0); Platelet Count 66 10x3/uL (130-400); RBC Distribution Width 21.4 % (11.5-14.5); Red Blood Cell (RBC) Count 3.58 mill/uL (4.20-5.40)
[2023-12-18] MEDS: Magnesium Sulfate 3 GM in Sodium Chloride 0.9% 100 ML IVPB SCH (09:56)
[2023-12-18] MEDS: Potassium Chloride 20 MEQ TAB PO SCH (10:12)
[2023-12-18 10:40] LABS: Magnesium 1.6 mg/dL (1.6-2.6)
[2023-12-18 11:38] VITALS: BP 107/56; TEMP 97.4
== END 2023-12-18 12:50 | disposition home or self-care (01) | DRG 872 ==
LOC: ERS 03:46 → T4-B 06:31 → OBSVTOIN 12:28 → IMCU/EMU 12-15 06:05 → 2NO 12-17 19:40
PROVIDERS: ADMIT Internal Medicine; ATTEND Internal Medicine
DX: A41.51 Sepsis due to Escherichia coli [E. coli] (principal); N39.0 Urinary tract infection, site not specified; E87.1 Hypo-osmolality and hyponatremia; F10.131 Alcohol abuse with withdrawal delirium; E87.6 Hypokalemia; E83.42 Hypomagnesemia; D69.6 Thrombocytopenia, unspecified; D64.9 Anemia, unspecified; K20.90 Esophagitis, unspecified without bleeding; Z71.41 Alcohol abuse counseling and surveillance of alcoholic; F41.9 Anxiety disorder, unspecified
CPT/HCPCS: 36415; 51701; 71046; 74177; 76705; 80053; 81001; 81025; 82140; 83540; 83550; 83690; 83735; 84100; 85025; 85610; 87040; 87077; 87086; 87186; 96372; 96374; 96375; G0378; J0696; J1650; J2060; J3411; J3475; J3480; J3490; J7050; Q9967; U0002